=== PATIENT | female | born 1980 ===

== ENCOUNTER 2020-01-31 21:20 | Outpatient (REF) | payer MEDICAID, SELFPAY ==
[2020-02-03 20:47] LABS: SARS-CoV-2 RNA Undetected (Undetected); SARS-CoV-2 Specimen Source Nasopharynx
== END 2020-01-31 21:40 ==
LOC: NCHCN 21:20
PROVIDERS: Visit Provider Family Medicine
DX: Z11.59 Encounter for screening for other viral diseases (principal)
CPT/HCPCS: U0003

== ENCOUNTER 2021-08-06 10:34 | Outpatient (REF) | payer MEDICAID, SELFPAY ==
--- NOTE | 2021-08-06 08:45 | PAPFT_PTH ---
PATIENT: Ericka Pierson LOC: [facility]#:[id number] AGE/SX: 41/F ROOM: RE08/06/[address]: Rhiannon Bueno : 1980 BED: DIS: 08/06/2021 SPEC #: [id number] RECD: 08/06/21 16:22 STATUS: FRANKO REQ #: [id number] CELENA: 08/06/21 08:[address]: Rhiannon Bueno DEPT: [facility] Cytology RECD BY: Rebecca Ngo ENTERED: 08/06/21 16:22 SP TYPE: PAPFT OTHR DR: Unknown,Unknown Tissues: 1 - CX/ENDOCX FOR PAP SMEARS Procedures: PAP THIN PREP/[facility] Screening HPV DNA PROBE Comments: [id number] (CHLAMYDIA/GC)
[2021-08-07 15:34] LABS: Chlamydia Result Negative (Negative); GC Result Negative (Negative)
[2021-08-08 10:12] LABS: HIV-1/2 Ag & Ab Screen Negative (Negative)
[2021-08-08 10:29] LABS: Hepatitis C Ab w Rflx HCV PCR Negative (Negative)
[2021-08-08 10:41] LABS: Syphilis Serology (RPR) Negative (Negative)
== END 2021-08-06 10:35 | disposition home or self-care (01) ==
LOC: NCHCN 10:34
PROVIDERS: Visit Provider Family Medicine
DX: Z12.4 Encounter for screening for malignant neoplasm of cervix (principal); Z11.51 Encounter for screening for human papillomavirus (HPV); Z11.4 Encounter for screening for human immunodeficiency virus [HIV]; Z11.59 Encounter for screening for other viral diseases; Z11.3 Encounter for screening for infections with a predominantly sexual mode of transmission
CPT/HCPCS: 86803; 87389; 87491; 87591; 88142; 86592; 87624

== ENCOUNTER 2021-08-20 18:49 | Outpatient (REF) | payer MEDICAID, SELFPAY | END 2021-08-20 18:50 | disposition home or self-care (01) | LOC: NCHCN 18:49 | PROVIDERS: Visit Provider Family Medicine | DX: N39.0 Urinary tract infection, site not specified (principal) | CPT/HCPCS: 87077; 87086; 87186 ==

== ENCOUNTER 2024-11-29 16:57 | Outpatient (REF) | payer MEDICAID, SELFPAY ==
--- NOTE | 2024-11-29 13:56 | PAPFT_PTH ---
PATIENT: Ericka Pierson LOC: [facility]#:[id number] AGE/SX: 44/F ROOM: RE11/29/[address]: Rhiannon Bueno : 1980 BED: DIS: 11/29/2024 SPEC #: [id number] RECD: 11/30/24 13:07 STATUS: FRANKO REQ #: [id number] CELENA: 11/29/24 13:[address]: Rhiannon Bueno DEPT: [facility] Cytology RECD BY: Rebecca Ngo ENTERED: 11/30/24 13:07 SP TYPE: PAPFT OTHR DR: Unknown,Unknown Tissues: 1 - CX/ENDOCX FOR PAP SMEARS Procedures: PAP THIN PREP/[facility] Screening HPV DNA PROBE Comments: [id number] (HPV 16 & 18/45) (CHLAMYDIA/GC)
[2024-12-01 12:35] LABS: Chlamydia Result Negative (Negative); GC Result Negative (Negative)
== END 2024-11-29 16:58 | disposition home or self-care (01) ==
LOC: NCHCN 16:57
PROVIDERS: Visit Provider Family Medicine
DX: Z00.00 Encounter for general adult medical examination without abnormal findings (principal); Z12.4 Encounter for screening for malignant neoplasm of cervix; Z11.51 Encounter for screening for human papillomavirus (HPV); Z11.3 Encounter for screening for infections with a predominantly sexual mode of transmission; N76.0 Acute vaginitis
CPT/HCPCS: 87491; 87591; 88142; 87624